=== PATIENT | male | born 1965 ===

== ENCOUNTER 2017-03-17 07:05 | Day surgery (SDC) | payer OTHER ==
[2017-03-17] MEDS ORDERED: Lactated Ringer's 500 ML IV ONE (07:44)
[2017-03-17] MEDS ORDERED: Propofol 10 mg/ml Inj (20 ML) ONE (07:51)
[2017-03-17 09:16] VITALS: RESP 18; TEMP 96.8; O2SAT 100
[2017-03-17 09:28] VITALS: BP 103/58; PULSE 52
== END 2017-03-17 09:59 | disposition home or self-care (01) ==
LOC: H.ENDO 07:05
PROVIDERS: ATTEND Internal Medicine Gastroenterology
DX: Z12.11 Encounter for screening for malignant neoplasm of colon (principal); E11.9 Type 2 diabetes mellitus without complications; E78.5 Hyperlipidemia, unspecified; I10 Essential (primary) hypertension; K57.30 Diverticulosis of large intestine without perforation or abscess without bleeding; K64.8 Other hemorrhoids